=== PATIENT | male | born 1995 | race American Indian/Alaskan Native ===

== ENCOUNTER 2018-03-02 14:30 | Emergency (ER) | payer OTHER ==
[2018-03-02 19:15] LABS: BUN/Creatinine Ratio 25; Blood Urea Nitrogen 20 mg/dL (9-20); Calcium 9.1 mg/dL (8.4-10.2); Hemolysis Index 12
--- NOTE | 2018-03-02 19:18 | Emergency Department Report ---
[facility] - Documentation Documentation: 22-year-old male with past medical history of bipolar disorder that presents to the ER with 2 days of intermittent sweaty palms, generalized weakness, indigestion. Patient was recently started on Cogentin 3 days ago. He chronically takes Depakote/Abilify/trazodone. The patient was sent by his psychiatric facility for medical evaluation. No family history of sudden cardiac . Denies illicit drug use. He says that he is compliant with his home medications. Vital signs are stable. EKG is nonischemic. Intervals are appropriate. Patient will have screening blood work done, including Depakote level. This is unremarkable, low emergent etiology of patient's symptoms. I will have him follow-up with his family doctor for reevaluation. EKG interpretation: Regular rate rhythm access, normal sinus rhythm, rate 71, intervals are appropriate, no acute ST/T-wave changes.
[2018-03-02 20:43] VITALS: BP 123/58
--- NOTE | 2018-03-02 22:33 | Emergency Department Report ---
HPI - General Chief Complaint: Dizziness Time Seen by Provider: 03/02/18 19:16 ED Past Medical Hx - Past Medical History Previous Medical History?: Yes Hx Psychiatric Treatment: Yes (schizo affective, Borderline personality disorder ) Hx Asthma: Yes - Surgical History Past Surgical History?: Yes Additional Surgical History: tonsilectomy - Social History Smoking Status: Never Smoker Substance Use Type: None ED Review of Systems ROS: Stated complaint: SHAKY HANDS Other details as noted in HPI Physical Exam - Physical Exam Vital Signs: Vital Signs 03/02/18 03/02/18 14:33 20:42 Temperature 97.7 F 98.2 F Pulse Rate 84 78 Respiratory 16 16 Rate Blood Pressure 143/81 Blood Pressure 123/58 [Right] O2 Sat by Pulse 97 98 Oximetry ED Course Vital Signs 03/02/18 03/02/18 14:33 20:42 Temperature 97.7 F 98.2 F Pulse Rate 84 78 Respiratory 16 16 Rate Blood Pressure 143/81 Blood Pressure 123/58 [Right] O2 Sat by Pulse 97 98 Oximetry ED Medical Decision Making - Lab Data Result diagrams: 03/02/18 18:19 Critical care attestation.: If time is entered above; I have spent that time in minutes in the direct care of this critically ill patient, excluding procedure time. ED Disposition Clinical Impression: Light-headed feeling Disposition: DC-01 TO HOME OR SELFCARE Is pt being admited?: No Does the pt Need Aspirin: No Condition: Stable Instructions: Valproic Acid (By mouth), Lightheadedness (ED) Additional Instructions: Make sure to follow up with the psychiatric as discussed. You have been medically cleared to return back Continue taking her medication as you were prescribed. If you have any worsening symptoms or develop new symptoms please return to ED immediately. Referrals: EZEKIEL DORSEY [Other] - 3-5 Days Forms: Work/School Release Form(ED) Time of Disposition: 22:33
== END 2018-03-02 22:39 | disposition home or self-care (01) ==
LOC: ED 14:30
DX: R42 Dizziness and giddiness (principal); R53.1 Weakness; R61 Generalized hyperhidrosis; F31.9 Bipolar disorder, unspecified; F25.9 Schizoaffective disorder, unspecified; J45.909 Unspecified asthma, uncomplicated; Z90.89 Acquired absence of other organs; Z88.8 Allergy status to other drugs, medicaments and biological substances
CPT/HCPCS: 36415; 80048; 80164; 93005; 93010; 99283

== ENCOUNTER 2018-03-10 17:55 | Emergency (ER) | payer OTHER ==
[2018-03-10 18:10] VITALS: BP 108/60
[2018-03-10] MEDS ORDERED: NACL 0.9% 1000 ML 1,000 ML IV ONE (21:57)
[2018-03-10] MEDS ORDERED: ZOFRAN IV ONE (21:57)
[2018-03-10] MEDS ORDERED: BENTYL PO ONE (21:58)
[2018-03-10] MEDS ORDERED: PEPCID IV ONE (21:58)
--- NOTE | 2018-03-10 21:59 | Emergency Department Report ---
ED General Adult HPI - General Chief complaint: Nausea/Vomiting/Diarrhea Stated complaint: VOMITING Time Seen by Provider: 03/10/18 21:51 Source: patient, RN notes reviewed Mode of arrival: Ambulatory Limitations: No Limitations - History of Present Illness Initial comments: This is a 22-year-old male who was previously unknown to this provider. Has a past medical history of schizoaffective and borderline personality disorder. His primary care doctor is Dr. Cirilo Toure. He presents to the ER with complaint of abdominal pain. The abdominal pain is periumbilical. It increases with palpation. It does not have any relieving factors. Patient describes a few episodes of nonbloody, nonbilious diarrhea. He also admits to dysuria. He denies testicular pain. He also admits to nausea and vomiting a few times. Denies sick contacts. -: Gradual Location: abdomen Radiation: non-radiation Quality: aching Consistency: intermittent Improves with: other Worsens with: other Associated Symptoms: nausea/vomiting, other (positive dysuria. Negative for testicular pain.). denies: confusion, chest pain, cough, diaphoresis, fever/ chills, headaches, loss of appetite, malaise, rash, seizure, shortness of breath , syncope, weakness - Related Data Previous Rx's Medication Instructions Recorded Last Taken Type Dicyclomine [Bentyl] 10 mg PO QID PRN #20 capsule 03/11/18 Unknown Rx Famotidine [Pepcid] 20 mg PO BID #10 tablet 03/11/18 Unknown Rx Ibuprofen [Motrin] 600 mg PO Q8H PRN #30 tablet 03/11/18 Unknown Rx Ondansetron [Zofran Odt] 4 mg PO Q8HR PRN #20 tab.rapdis 03/11/18 Unknown Rx Allergies Allergy/AdvReac Type Severity Reaction Status Date / Time haloperidol [From Haldol] Allergy Unknown Verified 03/02/18 14:32 ED Review of Systems ROS: Stated complaint: VOMITING Other details as noted in HPI Comment: All other systems reviewed and negative ED Past Medical Hx - Past Medical History Hx Psychiatric Treatment: Yes (schizo affective, Borderline personality disorder ) Hx Asthma: Yes - Surgical History Additional Surgical History: tonsilectomy - Social History Smoking Status: Never Smoker Substance Use Type: None - Medications Home Medications: Home Medications Medication Instructions Recorded Confirmed Last Taken Type Dicyclomine [Bentyl] 10 mg PO QID PRN #20 capsule 03/11/18 Unknown Rx Famotidine [Pepcid] 20 mg PO BID #10 tablet 03/11/18 Unknown Rx Ibuprofen [Motrin] 600 mg PO Q8H PRN #30 tablet 03/11/18 Unknown Rx Ondansetron [Zofran Odt] 4 mg PO Q8HR PRN #20 tab.rapdis 03/11/18 Unknown Rx ED Physical Exam - General Limitations: No Limitations General appearance: alert, in no apparent distress - Head Head exam: Present: atraumatic, normocephalic - Eye Eye exam: Present: normal appearance, EOMI. Absent: nystagmus - ENT ENT exam: Present: normal exam, normal orophraynx, mucous membranes moist, normal external ear exam - Neck Neck exam: Present: normal inspection, full ROM. Absent: tenderness, meningismus - Respiratory Respiratory exam: Present: normal lung sounds bilaterally. Absent: respiratory distress - Cardiovascular Cardiovascular Exam: Present: normal rhythm, tachycardia, normal heart sounds. Absent: systolic murmur, diastolic murmur, rubs, gallop - GI/Abdominal GI/Abdominal exam: Present: soft, tenderness, normal bowel sounds, other ( minimal supraumbilical/periumbilical tenderness. There is no right lower quadrant tenderness.). Absent: distended, guarding, rebound, rigid, pulsatile mass - Rectal Rectal exam: Present: deferred - exam: Present: normal inspection, other (there is no testicular tenderness. There is normal testicular lie bilaterally. There is normal cremasteric reflex bilaterally.). Absent: testicular tenderness External exam: Present: normal external exam, other (escorted by ER injection molding process technician Luis Carlos Delatorre) - Extremities Exam Extremities exam: Present: normal inspection, full ROM, normal capillary refill. Absent: pedal edema, joint swelling, calf tenderness - Back Exam Back exam: Present: normal inspection, full ROM. Absent: tenderness, CVA tenderness (R), paraspinal tenderness, vertebral tenderness - Neurological Exam Neurological exam: Present: alert, oriented X3, CN II-XII intact, normal gait, other (Extraocular movements intact. Tongue midline. No facial droop. Facial sensation intact to light touch in the V1, V2, V3 distribution bilaterally. 5 and 5 strength in 4 extremities.. Sensation is intact to light touch in 4 extremities.). Absent: motor sensory deficit - Psychiatric Psychiatric exam: Present: normal affect, normal mood - Skin Skin exam: Present: warm, dry, intact, normal color. Absent: rash ED Course Vital Signs 03/10/18 18:07 Temperature 98.8 F Pulse Rate 105 H Respiratory 17 Rate Blood Pressure 108/60 O2 Sat by Pulse 96 Oximetry - Reevaluation(s) Reevaluation #1: 03/11/18 01:13 Differential diagnosis, including but not limited to: Appendicitis, colitis, diverticulitis, enteritis, inflammatory bowel disease, urinary tract infection Assessment and plan: 22-year-old male with periumbilical pain, reported nausea, vomiting, diarrhea. Also has a normal genital exam and normal testicular examination. He is afebrile with reassuring vital signs with the exception of tachycardia. Given periumbilical pain, psychiatric history, physical exam may be unreliable, we will therefore obtain a CT scan of abdomen and pelvis. Patient was treated with nonnarcotic pain medication, nausea medication. He has been reevaluated by myself multiple times while here in the ER, and he is currently sleeping on a stretcher in no distress. Reevaluation #2: 03/11/18 01:38 Care is transferred to the overnight physician, Dr Walker. Plan would be to discharge, assuming resolution of tachycardia, and urinalysis and CT scan of the abdomen and pelvis being normal. ED Medical Decision Making - Lab Data Result diagrams: 03/10/18 22:11 03/10/18 22:11 Vital Signs 03/10/18 18:07 Temperature 98.8 F Pulse Rate 105 H Respiratory 17 Rate Blood Pressure 108/60 O2 Sat by Pulse 96 Oximetry Lab Results 03/10/18 03/10/18 03/10/18 Range/Units 22:11 22:11 22:11 WBC 8.5 (4.5-11.0) K/mm3 RBC 4.41 (3.65-5.03) M/mm3 Hgb 13.3 (11.8-15.2) gm/dl Hct 40.7 (35.5-45.6) % MCV 92 (84-94) fl MCH 30 (28-32) pg MCHC 33 (32-34) % RDW 13.4 (13.2-15.2) % Plt Count 308 (140-440) K/mm3 Sodium 142 (137-145) mmol/L Potassium 4.0 (3.6-5.0) mmol/L Chloride 103.7 (98-107) mmol/L Carbon Dioxide 24 (22-30) mmol/L Anion Gap 18 mmol/L BUN 19 (9-20) mg/dL Creatinine 0.8 (0.8-1.5) mg/dL Estimated GFR > 60 ml/min BUN/Creatinine Ratio 24 % Glucose 117 H (75-100) mg/dL Calcium 9.2 (8.4-10.2) mg/dL Total Bilirubin < 0.20 (0.1-1.2) mg/dL AST 61 H (5-40) units/L ALT 107 H (7-56) units/L Alkaline Phosphatase 82 (35-129) units/L Total Protein 7.1 (6.3-8.2) g/dL Albumin 4.0 (3.9-5) g/dL Albumin/Globulin Ratio 1.3 % Lipase 19 (13-60) units/L Salicylates < 0.3 L (2.8-20.0) mg/dL Acetaminophen (10.0-30.0) ug/mL 03/10/18 Range/Units 22:11 WBC (4.5-11.0) K/mm3 RBC (3.65-5.03) M/mm3 Hgb (11.8-15.2) gm/dl Hct (35.5-45.6) % MCV (84-94) fl MCH (28-32) pg MCHC (32-34) % RDW (13.2-15.2) % Plt Count (140-440) K/mm3 Sodium (137-145) mmol/L Potassium (3.6-5.0) mmol/L Chloride (98-107) mmol/L Carbon Dioxide (22-30) mmol/L Anion Gap mmol/L BUN (9-20) mg/dL Creatinine (0.8-1.5) mg/dL Estimated GFR ml/min BUN/Creatinine Ratio % Glucose (75-100) mg/dL Calcium (8.4-10.2) mg/dL Total Bilirubin (0.1-1.2) mg/dL AST (5-40) units/L ALT (7-56) units/L Alkaline Phosphatase (35-129) units/L Total Protein (6.3-8.2) g/dL Albumin (3.9-5) g/dL Albumin/Globulin Ratio % Lipase (13-60) units/L Salicylates (2.8-20.0) mg/dL Acetaminophen < 5.0 L (10.0-30.0) ug/mL - Radiology Data Radiology results: pending Critical care attestation.: If time is entered above; I have spent that time in minutes in the direct care of this critically ill patient, excluding procedure time. ED Disposition Clinical Impression: Abdominal pain Disposition: DC-01 TO HOME OR SELFCARE Is pt being admited?: No Does the pt Need Aspirin: No Condition: Good Instructions: Abdominal Pain (ED) Additional Instructions: Take the pain medication, nausea medication as needed/directed. Follow up with a primary care doctor within the next 7-10 days. Laboratory studies demonstrated nonspecific elevation in liver function tests. Follow up with the primary care doctor for this, and for the time being and avoid consumption of alcohol and Tylenol/acetaminophen. Return to the ER right away with new pain, worsened pain, migration of pain, fevers, chills, lethargy, irritability, projectile vomiting, change in mental status, confusion, inability to tolerate liquid feeds. Prescriptions: Dicyclomine [Bentyl] 10 mg PO QID PRN #20 capsule PRN Reason: Pain Famotidine [Pepcid] 20 mg PO BID #10 tablet Ibuprofen [Motrin] 600 mg PO Q8H PRN #30 tablet PRN Reason: Pain Ondansetron [Zofran Odt] 4 mg PO Q8HR PRN #20 tab.rapdis PRN Reason: Nausea Referrals: PRIMARY CAREMD [Primary Care Provider] - 3-5 Days CIRILO TOURE MD [Staff Physician] - 3-5 Days
[2018-03-10 22:24] LABS: Hematocrit 40.7 % (35.5-45.6); Hemoglobin 13.3 gm/dl (11.8-15.2); Mean Corpuscular HGB Conc 33 % (32-34); Mean Corpuscular Hemoglobin 30 pg (28-32); Mean Corpuscular Volume 92 fl (84-94); Platelet Count 308 K/mm3 (140-440); Red Blood Count 4.41 M/mm3 (3.65-5.03); Red Cell Distribution Width 13.4 % (13.2-15.2)
[2018-03-10 22:41] LABS: Alanine Aminotransferase 107 units/L (7-56); BUN/Creatinine Ratio 24; Blood Urea Nitrogen 19 mg/dL (9-20); Calcium 9.2 mg/dL (8.4-10.2); Hemolysis Index 12; Lipase 19 units/L (13-60)
--- NOTE | 2018-03-11 02:20 | Cat Scan Report ---
FINAL REPORT EXAM: CT ABDOMEN PELVIS W CON HISTORY: Nausea, Vomiting and Diarrhea TECHNIQUE: Routine axial imaging was obtained of the abdomen and pelvis following the intravenous injection of 100 cc of Omnipaque 350. Delayed imaging was obtained through the kidneys ureters and bladder. Sagittal and coronal reconstructions were reviewed. FINDINGS: Images through lung bases reveal minimal dependent atelectasis in both lower lobes. Pleural fluid is not seen The liver, gallbladder, biliary tree, pancreas, spleen, and adrenal glands appear normal. The kidneys enhance normally. The vascular structures enhance normally. The bowel loops are normal in caliber and course. There is no evidence of free fluid or adenopathy. The appendix is not seen. In the pelvis the prostate gland and bladder appear normal. The skeletal structures are well-maintained. The soft tissues reveal nonspecific subcutaneous nodules overlying both buttocks. IMPRESSION: No acute process in the abdomen and pelvis. Minimal dependent atelectasis in both lower lobes. Nonspecific subcutaneous nodules overlying both buttocks which are of uncertain etiology.
== END 2018-03-11 03:24 | disposition home or self-care (01) ==
LOC: ED 17:55
DX: R10.33 Periumbilical pain (principal); J45.909 Unspecified asthma, uncomplicated
CPT/HCPCS: 36415; 74177; 80053; 83690; 85027; 96361; 96374; 96375; 99284; G0480; J2405; J7030; Q9967; 80320; 87086